=== PATIENT | male | born 1980 | race Caucasian/White ===

== ENCOUNTER 2019-02-13 04:26 | Inpatient (IN) | payer OTHER ==
[2019-02-13] MEDS ORDERED: LORAZEPAM 2 MG INJ (04:41)
[2019-02-13] MEDS ORDERED: DIPHENHYDRAMINE 50 MG INJ (04:41)
[2019-02-13] MEDS ORDERED: HALOPERIDOL 5 MG INJ (04:41)
[2019-02-13] MEDS: DIPHENHYDRAMINE 50 MG INJ IM (04:50)
[2019-02-13] MEDS: LORAZEPAM 2 MG INJ IM (04:50)
[2019-02-13] MEDS: HALOPERIDOL 5 MG INJ IM ×2 (04:50→11:20)
[2019-02-13 05:31] LABS: ADD MAN DIFF? NO
[2019-02-13] MEDS: SODIUM CHLORIDE 0.9% 1L BAG IV* (05:40)
[2019-02-13] MEDS: CEFEPIME 2GM/50 ML (PMX) 50 ML IVPB (05:42)
[2019-02-13 05:52] LABS: WHITE BLOOD COUNT 8.9 10^3/ul (4.8-10.8)
[2019-02-13 05:52] LABS: BASOPHIL # 0.1 10^3/ul (0.0-0.1); BASOPHILS % 0.7 % (0.0-2.0); EOSINOPHILS % 0.2 % (0.0-7.0); HEMATOCRIT 40.8 % (42.0-52.0); HEMOGLOBIN 13.9 g/dl (14.0-18.0); LYMPHOCYTES % 10.7 % (15.0-51.0); MEAN CORPUSCULAR HEMOGLOBIN 29.3 pg (29.0-33.0); MEAN CORPUSCULAR HGB CONC 34.1 g/dl (32.0-37.0); MEAN CORPUSCULAR VOLUME 85.9 fl (82.0-101.0); MEAN PLATELET VOLUME 10.2 fl (7.4-10.4); MONOCYTE # 0.7 10^3/ul (0.3-0.9); MONOCYTES % 8.2 % (0.0-11.0); NEUTROPHIL # 7.1 10^3/ul (1.6-7.5); NEUTROPHILS % 79.9 % (39.0-77.0); PLATELET COUNT 148 10^3/UL (140-415); RED BLOOD COUNT 4.75 10^6/ul (4.70-6.10); RED CELL DISTRIBUTION WIDTH 12.8 % (11.5-14.5)
[2019-02-13 06:07] LABS: INR 0.91; PARTIAL THROMBOPLASTIN TIME 22.2 Sec (23.0-35.0); PROTIME 12.4 Sec (11.9-14.9)
[2019-02-13] MEDS: VANCOMYCIN 1 GM (PMX) 250 ML IVPB (06:13)
[2019-02-13 06:23] LABS: ALANINE AMINOTRANSFERASE 104 IU/L (13-69); ALBUMIN 4.2 g/dl (3.3-4.9); ALBUMIN/GLOBULIN RATIO 1.23; ALKALINE PHOSPHATASE 133 IU/L (42-121); ANION GAP 20 (5-13); ASPARTATE AMINO TRANSFERASE 109 IU/L (15-46); BILIRUBIN,INDIRECT 0.5 mg/dl (0-1.1); BILIRUBIN,TOTAL 0.5 mg/dl (0.2-1.3); BLOOD UREA NITROGEN 14 mg/dl (7-20); CALCIUM 8.7 mg/dl (8.4-10.2); CARBON DIOXIDE 17 mmol/L (21-31); CHLORIDE 102 mmol/L (97-110); CREATININE 1.18 mg/dl (0.61-1.24); Estimated GFR > 60 mL/min (>60); GLUCOSE 144 mg/dl (70-220); POTASSIUM 3.2 mmol/L (3.5-5.1); SODIUM 139 mmol/L (135-144); TOTAL PROTEIN 7.6 g/dl (6.1-8.1)
[2019-02-13 06:24] LABS: ACETAMINOPHEN < 10.0 ug/ml (10.0-30.0); ETHANOL < 10.0 mg/dl (0-0); SALICYLATE < 1.0 mg/dl (5.0-30.0)
[2019-02-13 06:35] LABS: ADD UMIC YES; UR ASCORBIC ACID 20 mg/dL (NEGATIVE); UR BILIRUBIN (Dip) NEGATIVE (NEGATIVE); UR BLOOD (Dip) 1+ mg/dL (NEGATIVE); UR CLARITY CLEAR (CLEAR); UR COLOR YELLOW (YELLOW); UR GLUCOSE (Dip) NEGATIVE (NEGATIVE); UR KETONES (Dip) 1+ mg/dL (NEGATIVE); UR LEUKOCYTE ESTERASE (Dip) NEGATIVE Leu/ul (NEGATIVE); UR NITRITE (Dip) NEGATIVE (NEGATIVE); UR RBC 0 /HPF (0-5); UR SPECIFIC GRAVITY (Dip) 1.014 (1.003-1.030); UR TOTAL PROTEIN (Dip) 1+ mg/dl (NEGATIVE); UR UROBILINOGEN (Dip) NEGATIVE (NEGATIVE); UR WBC 1 /HPF (0-5)
[2019-02-13] MEDS: DEXAMETHASONE 10 MG/ML 1 ML INJ IV (06:39)
[2019-02-13 06:49] LABS: TROPONIN-I 0.028 ng/ml (0.000-0.120)
[2019-02-13 07:15] LABS: AMPHETAMINE/METHAMPHETAMINE NEGATIVE (NEGATIVE); BARBITURATES NEGATIVE (NEGATIVE); BENZODIAZEPINES NEGATIVE (NEGATIVE); CANNABINOIDS NEGATIVE (NEGATIVE); COCAINE NEGATIVE (NEGATIVE); OPIATES POSITIVE (NEGATIVE)
[2019-02-13] MEDS: KETAMINE (50 MG/ML) 10 ML VIAL IV ×2 (07:57→12:45)
[2019-02-13] MEDS ORDERED: ACYCLOVIR 500 MG in DEXTROSE 5% 100 ML IVPB (08:14)
[2019-02-13 08:19] LABS: LACTIC ACID 0.9 mmol/L (0.5-2.0)
[2019-02-13] MEDS: SOD CHLORIDE 0.9% 1,000 ML IV (08:25)
[2019-02-13 10:58] LABS: GLUCOSE,CSF 98 mg/dl (50-80)
[2019-02-13 10:58] LABS: LACTIC ACID 0.8 mmol/L (0.5-2.0)
[2019-02-13] MEDS: LORAZEPAM 2 MG INJ IV (11:20)
[2019-02-13] MEDS: DIPHENHYDRAMINE 50 MG INJ IV (11:20)
[2019-02-13] MEDS: PROPOFOL 200 MG INJ IV (13:05)
[2019-02-13 14:27] LABS: CSF WBC 1 /cmm (0-10)
[2019-02-13 14:29] LABS: TOTAL PROTEIN,CSF 40 mg/dl (12-60)
[2019-02-13 14:29] LABS: GLUCOSE,CSF 63 mg/dl (50-80)
[2019-02-13] MEDS: MULTIVITAMINS 10 ML, THIAMINE 100 MG, FOLIC ACID 1 MG, MAGNESIUM SULFATE 2 GM in SOD CH... IV (14:35)
[2019-02-13 14:43] LABS: CSF WBC 1 /cmm (0-10)
[2019-02-13 14:45] LABS: AMMONIA 12 umol/l (9-30)
[2019-02-13 14:46] LABS: CSF CLARITY CLEAR; CSF COLOR COLORLESS; CSF#TUBE COUNT TUBE#1; CSF#TUBES REC'D 4
[2019-02-13 14:54] LABS: CSF CLARITY CLEAR; CSF#TUBES REC'D 4
[2019-02-13 14:54] LABS: CSF COLOR COLORLESS
[2019-02-13 14:58] LABS: CSF#TUBE COUNT TUBE#4
[2019-02-13] MEDS ORDERED: ONDANSETRON 4 MG INJ IV (17:00)
[2019-02-13] MEDS ORDERED: VANCOMYCIN IV PER PHARMACY XX (17:00)
[2019-02-13] MEDS ORDERED: morphine 2 MG INJ IV (17:00)
[2019-02-13] MEDS ORDERED: NACL 0.9% 3 ML SYG IV (17:00)
[2019-02-13] MEDS ORDERED: LORAZEPAM 2 MG INJ IV (17:30)
[2019-02-13] MEDS: AMPICILLIN 2 GM/NS (PMX) 100 ML IVPB ×2 (17:50→21:06)
[2019-02-13] MEDS: POTASSIUM CHLORIDE 30 MEQ in SOD CHLORIDE 0.9% 1,000 ML IV (17:51)
[2019-02-13] MEDS ORDERED: VANCOMYCIN 500 MG (PMX) 100 ML IVPB (18:00)
[2019-02-13] MEDS: DEXAMETHASONE 4 MG/ML 5 ML INJ IV (18:50)
[2019-02-13] MEDS: CEFTRIAXONE 2 GM/50 ML (PMX) 50 ML IVPB (18:58)
[2019-02-13 19:46] LABS: AMMONIA 17 umol/l (9-30)
[2019-02-13] MEDS: VANCOMYCIN 1.5 GM/NS 250 ML 250 ML IVPB (20:06)
[2019-02-14] MEDS: DEXAMETHASONE 4 MG/ML 5 ML INJ IV ×3 (01:35→12:00)
[2019-02-14] MEDS: AMPICILLIN 2 GM/NS (PMX) 100 ML IVPB ×4 (01:41→13:00)
[2019-02-14] MEDS: POTASSIUM CHLORIDE 30 MEQ in SOD CHLORIDE 0.9% 1,000 ML IV ×2 (03:09→13:17)
[2019-02-14] MEDS: MULTIVITAMINS 10 ML, THIAMINE 100 MG, FOLIC ACID 1 MG in SOD CHLORIDE 0.9% 1,000 ML IVPB ×2 (04:55→04:57)
[2019-02-14 05:08] LABS: ADD MAN DIFF? NO; HAAIG REFLEX REFLEX FILED
[2019-02-14 05:14] LABS: WHITE BLOOD COUNT 10.6 10^3/ul (4.8-10.8)
[2019-02-14 05:14] LABS: BASOPHILS % 0.1 % (0.0-2.0); HEMATOCRIT 40.1 % (42.0-52.0); HEMOGLOBIN 13.6 g/dl (14.0-18.0); LYMPHOCYTES # 0.8 10^3/ul (0.8-2.9); LYMPHOCYTES % 7.3 % (15.0-51.0); MEAN CORPUSCULAR HEMOGLOBIN 29.4 pg (29.0-33.0); MEAN CORPUSCULAR HGB CONC 33.9 g/dl (32.0-37.0); MEAN CORPUSCULAR VOLUME 86.8 fl (82.0-101.0); MEAN PLATELET VOLUME 9.8 fl (7.4-10.4); MONOCYTE # 0.2 10^3/ul (0.3-0.9); MONOCYTES % 2.2 % (0.0-11.0); NEUTROPHIL # 9.5 10^3/ul (1.6-7.5); NEUTROPHILS % 89.9 % (39.0-77.0); PLATELET COUNT 163 10^3/UL (140-415); RED BLOOD COUNT 4.62 10^6/ul (4.70-6.10); RED CELL DISTRIBUTION WIDTH 13.6 % (11.5-14.5)
[2019-02-14 05:38] LABS: ALANINE AMINOTRANSFERASE 114 IU/L (13-69); ALBUMIN 3.7 g/dl (3.3-4.9); ALBUMIN/GLOBULIN RATIO 1.15; ALKALINE PHOSPHATASE 100 IU/L (42-121); ANION GAP 8 (5-13); ASPARTATE AMINO TRANSFERASE 134 IU/L (15-46); BILIRUBIN,INDIRECT 0.7 mg/dl (0-1.1); BILIRUBIN,TOTAL 0.7 mg/dl (0.2-1.3); BLOOD UREA NITROGEN 7 mg/dl (7-20); CALCIUM 8.5 mg/dl (8.4-10.2); CARBON DIOXIDE 25 mmol/L (21-31); CHLORIDE 105 mmol/L (97-110); CREATININE 0.59 mg/dl (0.61-1.24); Estimated GFR > 60 mL/min (>60); GLUCOSE 155 mg/dl (70-220); MAGNESIUM 2.2 mg/dl (1.7-2.5); PHOSPHORUS 2.7 mg/dl (2.5-4.9); POTASSIUM 3.9 mmol/L (3.5-5.1); SODIUM 138 mmol/L (135-144); TOTAL PROTEIN 6.9 g/dl (6.1-8.1)
[2019-02-14] MEDS: VANCOMYCIN 1 GM 250 ML IVPB (06:00)
[2019-02-14] MEDS: CEFTRIAXONE 2 GM/50 ML (PMX) 50 ML IVPB (07:00)
[2019-02-14 07:03] LABS: HEMOGLOBIN A1C 5.8 % (0-5.9)
[2019-02-14 07:36] LABS: HEPATITIS B SURFACE ANTIGEN NEGATIVE (NEGATIVE)
[2019-02-14 07:54] LABS: HEPATITIS B CORE ANTIBODY NEGATIVE (NEGATIVE); HEPATITIS C VIRAL ANTIBODY NEGATIVE (NEGATIVE)
[2019-02-15 14:27] LABS: HERPES SIMPLEX 1 DNA NOT DETECTED; HERPES SIMPLEX 2 DNA NOT DETECTED; HERPES SIMPLEX PCR SOURCE CEREBROSPINAL FLUID
[2019-02-16 08:56] LABS: CSF RBC 0 /uL (0-0)
== END 2019-02-14 12:45 | disposition home or self-care (01) | DRG 92 ==
LOC: E/R 04:26 → ICU 13:47
PROVIDERS: Internal Medicine
PROC: 009U3ZX Drainage of Spinal Canal, Percutaneous Approach, Diagnostic (ICD-10-PCS; principal; 2019-02-13)
DX: G92 Toxic encephalopathy (principal); F10.239 Alcohol dependence with withdrawal, unspecified; I10 Essential (primary) hypertension; K70.0 Alcoholic fatty liver; E87.6 Hypokalemia; K43.9 Ventral hernia without obstruction or gangrene; T40.2X5A Adverse effect of other opioids, initial encounter; Y92.239 Unspecified place in hospital as the place of occurrence of the external cause
CPT/HCPCS: 36415; 70450; 71045; 76705; 80053; 80307; 81001; 82140; 82945; 83036; 83605; 83735; 84100; 84157; 84484; 85025; 85610; 85730; 86704; 86709; 86803; 87040-91; 87070; 87086; 87102; 87210; 87252; 87340; 87529; 89051; 93005; 94770; 96365; 96372; 96375; 99291-25